=== PATIENT | male | born 1960 | race African-American/Black ===

== ENCOUNTER 2016-07-22 11:27 | Emergency (ER) | payer OTHER ==
[~2016-07-22] VITALS: Ht 190.5 cm; Wt 92.1 kg
[~2016-07-22 11:27] MED LIST: ALBUTEROL SULFAT2 MG PO; ALBUTEROL2.5 MG/3 M INH; ATENOLOL-CHLOR1 EAC2 ORAL; AZITHROMYCIN250 MG ORAL; CLONIDINE 0.2M0.2 MG PO; DOXYCYCLINE MO100 MG ORAL; FLONASE1 SPRAYS NASAL; FLOVENT2 PUFF1 INH; FLUCONAZOLE100 MG ORAL; LISINOPRIL40 MG ORAL; NORCO 5-325 TA1 EACH ORAL; NORVASC10 MG ORAL; PRINIVIL20 MG ORAL; QVAR7.3 GM INH
--- NOTE | 2016-07-22 12:44 | Emergency Room Report ---
History of Present Illness General Chief Complaint: Flu Like Symptoms Present Illness HPI The patient is 56 room now with a history of recurrent sinus infections presenting for facial fullness, pain, productive cough, and dizziness with subjective fevers. The patient describes a frontal headache 10 out of 10 dull ache and is constant. Pain worse with head movement. The patient denies fever, chills, neck pain or stiffness, itchy eyes, shortness of breath, wheezing, chest pain Allergies: Coded Allergies: No Known Allergies (Unverified , 12/17/13) Patient History Past Medical History: see triage record Pertinent Family History: none Reviewed Nursing Documentation: PMH: Agreed, PSxH: Agreed Nursing Documentation-PMH Hx Cardiac Problems: No - HIV Hx Hypertension: Yes Hx Asthma: Yes Hx Cancer: No Hx Gastrointestinal Problems: Yes - CIRRHOSIS Hx Neurological Problems: Yes Hx Dizziness: Yes Hx Headaches: Yes Review of Systems All Other Systems: negative except mentioned in HPI Physical Exam Vital Signs Date Time Temp Pulse Resp B/P Pulse Ox O2 Delivery O2 Flow Rate FiO2 07/22/16 11:39 98.4 126 20 96/71 96 Room Air Sp02 EP Interpretation: reviewed, normal General Appearance: no apparent distress, alert, GCS 15, non-toxic Head: normocephalic, atraumatic Eyes: bilateral eye PERRL, bilateral eye normal inspection ENT: normal pharynx, no angioedema, normal voice, TMs + canals normal, uvula midline, moist mucus membranes, nasal congestion, other - TTP over maxillary sinus Neck: full range of motion, supple/symm/no masses Respiratory: chest non-tender, lungs clear, normal breath sounds, no wheezing, speaking full sentences Cardiovascular #1: regular rate, rhythm, no edema Gastrointestinal: normal bowel sounds, non tender, soft, non-distended, no guarding, no rebound Genitourinary: normal inspection, no CVA tenderness Musculoskeletal: back normal, gait/station normal, normal range of motion, non- tender Neurologic: alert, oriented x3, responsive, motor strength/tone normal, sensory intact, speech normal Psychiatric: judgement/insight normal, memory normal, mood/affect normal, no suicidal/homicidal ideation Skin: normal color, no rash, warm/dry, well hydrated Medical Decision Making PA Attestation Dr. Bermeo is my supervising physician. Patient management was discussed with my supervising physician Diagnostic Impression: Primary Impression: Sinusitis ER Course The patient is 56 room now with a history of recurrent sinus infections presenting for facial fullness, pain, productive cough, and dizziness with subjective fevers. Differential diagnosis include but not limited to pharyngitis, sinusitis, AOM, bronchitis, PNA PE: The patient is initially tachycardic. Vitals are within normal limits at time of physical exam. HEENT: There is bilateral tenderness to palpation over maxillary sinus. There is also nasal congestion. Otherwise exam unremarkable Patient be treated for bacterial sinus infection. ER precautions are given Last Vital Signs Date Time Temp Pulse Resp B/P Pulse Ox O2 Delivery O2 Flow Rate FiO2 07/22/16 11:39 98.4 126 20 96/71 96 Room Air Status: improved Disposition: HOME, SELF-CARE Condition: Improved Scripts Pseudoephedrine Hcl* (SUDAFED*) 60 Mg Tablet 60 MG PO Q6H, #30 TAB Prov: ANIYA WILEY P.A. 07/22/16 Levofloxacin* (LEVAQUIN*) 500 Mg Tablet 500 MG ORAL DAILY, #14 TAB Prov: ANIYA WILEY P.A. 07/22/16 ANIYA WILEY P.A. Jul 22, 2016 12:44
[2016-07-22] MEDS ORDERED: PSEUDOEPHEDRINE60 MG PO (12:48)
[2016-07-22] MEDS ORDERED: LEVAQUIN500 MG ORAL (12:48)
[2016-07-22 12:55] VITALS: BP 101/73
[2016-07-22 12:57] VITALS: BP 101/73
== END 2016-07-22 12:58 | disposition home or self-care (01) ==
LOC: EMR 12:48
DX: J32.9 Chronic sinusitis, unspecified (principal); I10 Essential (primary) hypertension; J45.909 Unspecified asthma, uncomplicated; K74.60 Unspecified cirrhosis of liver
CPT/HCPCS: 99282